=== PATIENT | female | born 1935 | race Caucasian/White ===

== ENCOUNTER 2022-06-21 09:41 | Observation (INO) | payer BC, OTHER ==
[2022-06-21] MEDS ORDERED: ACETAMINOPHEN 500 MG TABLET (FP) PO ONE (10:40)
[2022-06-21] MEDS ORDERED: ACETAMINOPHEN 325 MG TABLET (FP) ONE (10:44)
[2022-06-21 11:23] LABS: BASO % 0.5 % (0-2.0); EOS % 0.8 % (0-4.5); HEMATOCRIT 29.5 % (32.4-45.2); MCH 20.5 pg (25.7-33.7); MCHC 30.5 g/dl (32.0-36.0); MEAN CELL VOLUME 67.3 fl (80-96); MEAN PLT VOLUME 9.1 fl (7.5-11.1); MONO % 5.2 % (3.8-10.2); NEUT % 89.5 % (42.8-82.8); PLATELET COUNT 549 10^3/uL (134-434); RBC 4.39 M/mm3 (3.60-5.2); RDW 17.1 % (11.6-15.6); WHITE BLOOD COUNT 16.7 K/mm3 (4.0-10.0)
[2022-06-21 11:37] LABS: CALCIUM 8.9 mg/dL (8.5-10.1)
[2022-06-21 11:38] LABS: ALBUMIN 3.5 g/dl (3.4-5.0); BLOOD UREA NITROGEN 17.4 mg/dL (7-18)
[2022-06-21 11:41] LABS: CREATININE 0.7 mg/dL (0.55-1.3)
[2022-06-21 11:43] LABS: TOT PROT 6.5 g/dl (6.4-8.2)
[2022-06-21 12:11] LABS: ANISOCYTOSIS 2+; MACROCYTOSIS 0; OVALOCYTE 2+; TARGET CELLS 2+
[2022-06-21 12:39] LABS: EPI CELLS 4 /uL (0-25.1); HYALINE CASTS 0 /uL (0-3.1); URINE APPEARANCE CLEAR; URINE BACTERIA 7 /uL (0-1359); URINE BILIRUBIN NEGATIVE (NEGATIVE); URINE COLOR YELLOW; URINE GLUCOSE (UA) NEGATIVE (NEGATIVE); URINE KETONE NEGATIVE (NEGATIVE); URINE LEUK ESTERASE TRACE (NEGATIVE); URINE NITRITE NEGATIVE (NEGATIVE); URINE PROTEIN TRACE (NEGATIVE); URINE RBC 10 /uL (0-23.9); URINE UROBILINOGEN 0.2 mg/dL (0.2-1.0); URINE WBC 13 /uL (0-25.8)
[2022-06-21 12:55] LABS: URINE CRYSTALS PRESENT /hpf
[2022-06-21] MEDS ORDERED: HALOPERIDOL LACTATE 5 MG/ML IM ONE (14:21)
[2022-06-21 14:38] LABS: INR 2.2 (0.83-1.09); PROTHROMBIN TIME (PATIENT) 25.3 SEC (9.7-13.0)
[2022-06-21 14:40] LABS: ACTIVATED PTT 38.6 SECONDS (25.2-36.5)
[2022-06-21] MEDS ORDERED: ATORVASTATIN CA 10 MG TABLET (FP) ONE (22:19)
[2022-06-21] MEDS ORDERED: QUEtiapine FUMARATE 25 MG TABLET ONE (22:19)
[2022-06-21] MEDS: ATORVASTATIN CA 10 MG TABLET (FP) PO SCH (22:36)
[2022-06-21] MEDS: QUEtiapine FUMARATE 50 MG TABLET PO SCH (22:36)
[2022-06-21] MEDS: MEMANTINE HCL 10 MG TABLET (FP) PO SCH (22:46)
[2022-06-22 07:11] LABS: BASO % 0.8 % (0-2.0); EOS % 1.3 % (0-4.5); HEMATOCRIT 26.9 % (32.4-45.2); HEMOGLOBIN 8.6 GM/dL (10.7-15.3); LYMPH % 5.7 % (8-40); MCH 21.7 pg (25.7-33.7); MCHC 32.1 g/dl (32.0-36.0); MEAN CELL VOLUME 67.7 fl (80-96); MEAN PLT VOLUME 9.6 fl (7.5-11.1); MONO % 7.5 % (3.8-10.2); NEUT % 84.7 % (42.8-82.8); PLATELET COUNT 509 10^3/uL (134-434); RBC 3.97 M/mm3 (3.60-5.2); RDW 17.2 % (11.6-15.6); WHITE BLOOD COUNT 11.6 K/mm3 (4.0-10.0)
[2022-06-22 07:55] LABS: CALCIUM 8.9 mg/dL (8.5-10.1)
[2022-06-22 07:56] LABS: ALBUMIN 3.4 g/dl (3.4-5.0); BLOOD UREA NITROGEN 20.6 mg/dL (7-18)
[2022-06-22 07:59] LABS: CREATININE 0.6 mg/dL (0.55-1.3)
[2022-06-22 08:00] LABS: BILIRUBIN,TOTAL 1.7 mg/dL (0.2-1)
[2022-06-22 08:01] LABS: TOT PROT 6.4 g/dl (6.4-8.2)
[2022-06-22 08:43] LABS: BILIRUBIN,DIRECT 0.4 mg/dL (0.0-0.2)
[2022-06-22] MEDS: MEMANTINE HCL 10 MG TABLET (FP) PO SCH ×2 (10:11→21:27)
[2022-06-22] MEDS ORDERED: LACTATED RINGERS SOLUTION 1,000 ML/1,000 ML INFUS.BAG IV SCH (11:15)
[2022-06-22 11:41] LABS: RETICULOCYTES 2.89 % (0.5-1.5)
[2022-06-22] MEDS ORDERED: QUEtiapine FUMARATE 25 MG TABLET ONE (21:17)
[2022-06-22] MEDS: ATORVASTATIN CA 10 MG TABLET (FP) PO SCH (21:27)
[2022-06-22] MEDS: QUEtiapine FUMARATE 50 MG TABLET PO SCH (21:28)
[2022-06-23] MEDS ORDERED: HALOPERIDOL LACTATE 5 MG/ML IM ONE (08:30)
[2022-06-23 09:12] LABS: HEMATOCRIT 27.7 % (32.4-45.2); MCH 21.6 pg (25.7-33.7); MCHC 32.5 g/dl (32.0-36.0); MEAN CELL VOLUME 66.6 fl (80-96); MEAN PLT VOLUME 9.1 fl (7.5-11.1); PLATELET COUNT 488 10^3/uL (134-434); RBC 4.16 M/mm3 (3.60-5.2); WHITE BLOOD COUNT 15.7 K/mm3 (4.0-10.0)
[2022-06-23 09:37] LABS: CALCIUM 8.8 mg/dL (8.5-10.1)
[2022-06-23 09:38] LABS: ALBUMIN 3.4 g/dl (3.4-5.0); BLOOD UREA NITROGEN 21.1 mg/dL (7-18)
[2022-06-23 09:41] LABS: CREATININE 0.6 mg/dL (0.55-1.3)
[2022-06-23 09:43] LABS: BILIRUBIN,TOTAL 1.5 mg/dL (0.2-1); TOT PROT 6.4 g/dl (6.4-8.2)
[2022-06-23] MEDS: MEMANTINE HCL 10 MG TABLET (FP) PO SCH ×2 (09:57→22:23)
[2022-06-23] MEDS ORDERED: QUEtiapine FUMARATE 25 MG TABLET ONE (21:54)
[2022-06-23] MEDS: ATORVASTATIN CA 10 MG TABLET (FP) PO SCH (22:25)
[2022-06-23] MEDS: QUEtiapine FUMARATE 50 MG TABLET PO SCH (22:35)
[2022-06-24] MEDS: MEMANTINE HCL 10 MG TABLET (FP) PO SCH ×2 (09:19→21:49)
[2022-06-24] MEDS: SODIUM CHLORIDE 1,000 ML IV SCH (14:50)
[2022-06-24 16:01] LABS: BASO % 0.5 % (0-2.0); EOS % 0.8 % (0-4.5); HEMATOCRIT 27.7 % (32.4-45.2); HEMOGLOBIN 8.8 GM/dL (10.7-15.3); LYMPH % 3.3 % (8-40); MCH 21.1 pg (25.7-33.7); MCHC 31.9 g/dl (32.0-36.0); MEAN PLT VOLUME 9.4 fl (7.5-11.1); MONO % 7.2 % (3.8-10.2); NEUT % 88.2 % (42.8-82.8); PLATELET COUNT 558 10^3/uL (134-434); RDW 17.5 % (11.6-15.6); WHITE BLOOD COUNT 14.7 K/mm3 (4.0-10.0)
[2022-06-24] MEDS ORDERED: QUEtiapine FUMARATE 25 MG TABLET ONE (21:42)
[2022-06-24] MEDS: ATORVASTATIN CA 10 MG TABLET (FP) PO SCH (21:48)
[2022-06-24] MEDS: QUEtiapine FUMARATE 50 MG TABLET PO SCH (21:50)
[2022-06-25] MEDS: SODIUM CHLORIDE 1,000 ML IV SCH (06:26)
[2022-06-25 08:52] LABS: BASO % 0.7 % (0-2.0); EOS % 1.6 % (0-4.5); HEMATOCRIT 23.5 % (32.4-45.2); HEMOGLOBIN 7.7 GM/dL (10.7-15.3); LYMPH % 4.3 % (8-40); MCH 22.1 pg (25.7-33.7); MEAN CELL VOLUME 67.1 fl (80-96); MEAN PLT VOLUME 9.2 fl (7.5-11.1); NEUT % 84.4 % (42.8-82.8); PLATELET COUNT 446 10^3/uL (134-434); RBC 3.49 M/mm3 (3.60-5.2); RDW 17.7 % (11.6-15.6); WHITE BLOOD COUNT 10.2 K/mm3 (4.0-10.0)
[2022-06-25 09:37] LABS: CALCIUM 8.3 mg/dL (8.5-10.1)
[2022-06-25 09:38] LABS: BLOOD UREA NITROGEN 24.4 mg/dL (7-18)
[2022-06-25 09:40] LABS: CREATININE 0.5 mg/dL (0.55-1.3)
[2022-06-25] MEDS ORDERED: HYDROXYUREA 500 MG CAPSULE PO SCH (10:00)
[2022-06-25] MEDS: MEMANTINE HCL 10 MG TABLET (FP) PO SCH ×2 (11:45→21:11)
[2022-06-25 15:13] VITALS: BMI 19.9
[2022-06-25] MEDS: D5-1/2NS+10 MEQ KCL - 10 MEQ/1,000 ML INFUS.BAG IV SCH (17:49)
[2022-06-25] MEDS ORDERED: QUEtiapine FUMARATE 25 MG TABLET ONE (21:05)
[2022-06-25] MEDS: ATORVASTATIN CA 10 MG TABLET (FP) PO SCH (21:11)
[2022-06-25] MEDS: QUEtiapine FUMARATE 50 MG TABLET PO SCH (21:11)
[2022-06-25] MEDS ORDERED: MELATONIN 5 MG TABLETS PO ONE (22:02)
[2022-06-25] MEDS ORDERED: ACETAMINOPHEN 1000 MG/100 ML BAG IVPB ONE (22:03)
[2022-06-26] MEDS: D5-1/2NS+10 MEQ KCL - 10 MEQ/1,000 ML INFUS.BAG IV SCH ×3 (05:49→20:50)
[2022-06-26] MEDS: MEMANTINE HCL 10 MG TABLET (FP) PO SCH ×2 (09:22→21:01)
[2022-06-26 10:02] VITALS: RESP 18
[2022-06-26 10:45] LABS: BASO % 0.9 % (0-2.0); EOS % 3.3 % (0-4.5); HEMATOCRIT 26.2 % (32.4-45.2); HEMOGLOBIN 8.7 GM/dL (10.7-15.3); LYMPH % 5.6 % (8-40); MCH 22.3 pg (25.7-33.7); MCHC 33.3 g/dl (32.0-36.0); MEAN CELL VOLUME 66.7 fl (80-96); MEAN PLT VOLUME 8.9 fl (7.5-11.1); MONO % 9.2 % (3.8-10.2); PLATELET COUNT 545 10^3/uL (134-434); RBC 3.92 M/mm3 (3.60-5.2); WHITE BLOOD COUNT 10.2 K/mm3 (4.0-10.0)
[2022-06-26 11:05] LABS: BLOOD UREA NITROGEN 14.3 mg/dL (7-18); CALCIUM 8.4 mg/dL (8.5-10.1)
[2022-06-26 11:09] LABS: CREATININE 0.5 mg/dL (0.55-1.3)
[2022-06-26] MEDS ORDERED: QUEtiapine FUMARATE 25 MG TABLET ONE (20:51)
[2022-06-26] MEDS: QUEtiapine FUMARATE 50 MG TABLET PO SCH (21:01)
[2022-06-26] MEDS: ATORVASTATIN CA 10 MG TABLET (FP) PO SCH (21:01)
[2022-06-27] MEDS: MEMANTINE HCL 10 MG TABLET (FP) PO SCH (09:43)
[2022-06-27] MEDS ORDERED: amLODIPine BESYLATE 5 MG TABLET (FP) PO SCH (11:30)
[2022-06-27 15:34] VITALS: BP 140/82; PULSE 84; TEMP 97.4
== END 2022-06-27 16:12 ==
LOC: JER 09:41 → JERBED 14:51 → J4W 06-22 00:45 → J5S 06-22 18:47
PROVIDERS: ADMIT Internal Medicine; ATTEND Internal Medicine
PROC: 3E023GC Introduction of Other Therapeutic Substance into Muscle, Percutaneous Approach (ICD-10-PCS; principal; 2022-06-21)
PROC: 3E0337Z Introduction of Electrolytic and Water Balance Substance into Peripheral Vein, Percutaneous Approach (ICD-10-PCS; 2022-06-21)
DX: M25.551 Pain in right hip (principal); I48.91 Unspecified atrial fibrillation; F03.90 Unspecified dementia, unspecified severity, without behavioral disturbance, psychotic disturbance, mood disturbance, and anxiety; E78.5 Hyperlipidemia, unspecified; I10 Essential (primary) hypertension; D75.839 Thrombocytosis, unspecified; Z91.013 Allergy to seafood; W18.39XA Other fall on same level, initial encounter; Z79.01 Long term (current) use of anticoagulants; Y93.89 Activity, other specified; Y92.092 Bedroom in other non-institutional residence as the place of occurrence of the external cause
CPT/HCPCS: 0241U-QW; 36415; 70450-TC; 71045-TC-FY; 72125-TC; 72170-TC-FY; 72192-TC; 80048; 80053; 81003; 82248; 82607; 82728; 82746; 82962; 83540; 83550; 84443; 84466; 84484; 84550; 85025; 85027; 85045; 85610; 85730; 87086; 93005; 93010; 96360; 96372; 97116-GP; 97162-GP; 99285-25; C9803-CS; G0378; U0003; U0005

== ENCOUNTER 2024-09-23 21:26 | Emergency (ER) | payer BC ==
[2024-09-23] MEDS ORDERED: LIDOCAINE 1%/EPI 1:100000 (20 ML MULTI DOSE VIAL) ONE (21:43)
[2024-09-23 21:56] VITALS: BMI 14.4
[2024-09-23] MEDS ORDERED: ACETAMINOPHEN 325 MG TABLET (FP) ONE (23:01)
[2024-09-23] MEDS ORDERED: DIPHTH,PERTUSS(ACELL),TET 0.5 ML DISP.SYRIN IM ONE (23:01)
[2024-09-23] MEDS: ACETAMINOPHEN 500 MG TABLET (FP) PO ONE (23:12)
[2024-09-23] MEDS: DIPHTH,PERTUSS(ACELL),TET 0.5 ML DISP.SYRIN IM ONE (23:13)
[2024-09-24 02:24] VITALS: BP 142/72; PULSE 88; RESP 16; TEMP 97.9
== END 2024-09-24 02:48 | disposition home or self-care (01) ==
LOC: JER 21:26
PROC: 0HQ1XZZ Repair Face Skin, External Approach (ICD-10-PCS; principal; 2024-09-23)
DX: S01.81XA Laceration without foreign body of other part of head, initial encounter (principal); Z23 Encounter for immunization; W19.XXXA Unspecified fall, initial encounter; Y92.129 Unspecified place in nursing home as the place of occurrence of the external cause; Y93.01 Activity, walking, marching and hiking
CPT/HCPCS: 12052; 70150-TC-FY; 70450-TC; 71045-TC-FY; 72125-TC; 72170-TC-FY; 90471; 90715; 99285-25